=== PATIENT | male | born 1990 | race Caucasian/White ===

== ENCOUNTER → 2022-01-23 15:24 | Outpatient (CLI) | payer OTHER, SELFPAY ==
--- NOTE | 2022-01-23 15:25 | DI.RAD.S_ITS ---
PROCEDURE: XR SHOULDER LT MIN 2V INDICATIONS: L I, left shoulder injury TECHNIQUE: 3 views of the shoulder were acquired. COMPARISON: None. FINDINGS: Bones: No acute fracture or dislocation. No significant degenerative changes. Soft tissues: No suspicious soft tissue calcifications. IMPRESSION: No acute radiographic abnormality. If there is high concern for further derangement, consider MRI evaluation. Dictated by: Weston Balderas M.D. on 01/23/2022 at 17:15 Approved by: Weston Balderas M.D. on 01/23/2022 at 17:16
== END ==
PROVIDERS: Referring Provider Nurse Practitioner Family; Visit Provider Nurse Practitioner Family
DX: S40.012A Contusion of left shoulder, initial encounter (principal); X58.XXXA Exposure to other specified factors, initial encounter
CPT/HCPCS: 73030